=== PATIENT | female | born 2005 | race Caucasian/White ===

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

== ENCOUNTER 2023-09-25 10:36 | Emergency (ER) | payer BC, OTHER ==
[2023-09-25 11:01] VITALS: BP 110/70; PULSE 91; RESP 18; TEMP 98.2; BMI 24.9
[2023-09-25] MEDS ORDERED: KETOROLAC TROMETHAMINE 30 MG/1 ML VIAL IM ONE (11:15)
[2023-09-25] MEDS ORDERED: SULFAMETHOXAZOLE/TRIMETHOPRIM 800MG/160MG D.S. TABLET PO ONE (11:16)
[2023-09-25] MEDS ORDERED: KETOROLAC TROMETHAMINE 30 MG/1 ML VIAL ONE (11:18)
[2023-09-25] MEDS ORDERED: SULFAMETHOXAZOLE/TRIMETHOPRIM 800MG/160MG D.S. TABLET ONE (11:22)
== END 2023-09-25 11:41 | disposition home or self-care (01) ==
LOC: JER 10:36 → JERFT 10:36
PROC: 3E0233Z Introduction of Anti-inflammatory into Muscle, Percutaneous Approach (ICD-10-PCS; principal; 2023-09-25)
DX: L02.31 Cutaneous abscess of buttock (principal)
CPT/HCPCS: 99284-25

== ENCOUNTER 2023-09-27 07:49 | Emergency (ER) | payer BC, OTHER ==
[2023-09-27 08:03] VITALS: BP 114/77; PULSE 99; RESP 20; TEMP 98.4; BMI 24.9
[2023-09-27] MEDS ORDERED: KETOROLAC TROMETHAMINE 30 MG/1 ML VIAL IM ONE (09:23)
== END 2023-09-27 10:40 | disposition home or self-care (01) ==
LOC: JER 07:49
PROC: 0H98XZZ Drainage of Buttock Skin, External Approach (ICD-10-PCS; principal; 2023-09-27)
DX: L02.31 Cutaneous abscess of buttock (principal); R22.41 Localized swelling, mass and lump, right lower limb
CPT/HCPCS: 10060; 99284-25

== ENCOUNTER 2023-09-30 08:24 | Emergency (ER) | payer BC, OTHER ==
[2023-09-30 08:31] VITALS: BP 119/56; PULSE 68; RESP 17; TEMP 97.7; BMI 22.4
== END 2023-09-30 09:02 | disposition home or self-care (01) ==
LOC: JERFT 08:24
DX: Z48.00 Encounter for change or removal of nonsurgical wound dressing (principal)
CPT/HCPCS: 99281-25